=== PATIENT | male | born 1980 | race Caucasian/White ===

== ENCOUNTER → 2024-01-22 10:03 | Outpatient (REF) | payer OTHER, SELFPAY ==
[2024-01-23 19:11] LABS: Hepatitis B Surface Antibody Positive
[2024-01-23 19:28] LABS: Rubella Positive
[2024-01-24 14:42] LABS: Quantiferon Mitogen minus NIL 9.99 IU/mL; Quantiferon NIL 0.01 IU/mL; Quantiferon Plus TB1 minus NIL 0.01 IU/mL (<=0.34); Quantiferon Plus TB2 minus NIL 0.01 IU/mL (<=0.34); Quantiferon TB Gold Plus Negative (Negative)
== END ==
LOC: OHS 10:03
PROVIDERS: ATTENDING PHYSICIAN Nurse Practitioner Family
DX: Z23 Encounter for immunization (principal)
CPT/HCPCS: 36415; 86480; 86706; 86735; 86762; 86765; 86787

== ENCOUNTER → 2024-05-04 10:06 | Outpatient (REF) | payer BC, SELFPAY | LOC: DHSLP 10:06 | PROVIDERS: ATTENDING PHYSICIAN Internal Medicine; FAMILY PHYSICIAN Internal Medicine | DX: G47.19 Other hypersomnia (principal); R06.83 Snoring | CPT/HCPCS: 95800 ==